=== PATIENT | female | born 1950 | race Caucasian/White ===

== ENCOUNTER 2018-08-17 08:53 | Emergency (ER) | payer MEDICAID ==
[~2018-08-17] VITALS: Ht 175.3 cm; Wt 85.2 kg
[~2018-08-17 08:53] MED LIST: NO HOME MEDS
[2018-08-17 11:05] LABS: BASOPHILS % (AUTO) 0.3 % (0-1); EOSINOPHILS # (AUTO) 0.2 X10'3 (0-0.9); EOSINOPHILS % (AUTO) 3.4 % (0-6); HEMOGLOBIN 12.3 g/dl (12.0-16.0); LYMPHOCYTES # (AUTO) 1.8 X10'3 (1.1-4.8); LYMPHOCYTES % (AUTO) 30.2 % (21-51); MEAN CORPUSCULAR HGB CONC 34.2 g/dL (33.0-36.5); MEAN CORPUSCULAR VOLUME 93.6 FL (78-98); MEAN PLATELET VOLUME 7.7 FL (7.4-10.4); MONOCYTES # (AUTO) 0.5 X10'3 (0-0.9); MONOCYTES % (AUTO) 7.6 % (2-12); NEUTROPHILS # (AUTO) 3.6 X10'3 (1.8-7.7); NEUTROPHILS % (AUTO) 58.5 % (42-75); PLATELET COUNT 216 X10'3 (140-440); RED BLOOD COUNT 3.85 X10'6 (4.20-5.60); WHITE BLOOD COUNT 6.1 X10'3 (4.5-11.0)
[2018-08-17 11:21] LABS: ALANINE AMINOTRANSFERASE 27 U/L (12-78); ALBUMIN 3.5 G/DL (3.4-5.0); ALBUMIN/GLOBULIN RATIO 1.1 (1.1-1.5); ALKALINE PHOSPHATASE 99 IU/L (46-116); ANION GAP 6 (8-16); ASPARTATE AMINO TRANSFERASE 22 U/L (10-37); BILIRUBIN,TOTAL 0.4 MG/DL (0.1-1.0); BLOOD UREA NITROGEN 21 MG/DL (7-18); BUN/CREATININE RATIO 19.4 (6.6-38.0); CALCIUM 9.1 MG/DL (8.5-10.1); CHLORIDE 110 MMOL/L (99-107); CREATININE 1.08 MG/DL (0.40-0.90); GLUCOSE 86 MG/DL (70-104); POTASSIUM 3.7 MMOL/L (3.5-5.1); SODIUM 143 MMOL/L (135-145); TOTAL CARBON DIOXIDE 27.4 MMOL/L (24-32); TOTAL PROTEIN 6.8 G/DL (6.4-8.2); eGFR 51 ML/MIN
[2018-08-17 12:06] VITALS: BP 140/78
[2018-08-17] MEDS ORDERED: HYDR-3965 PO (13:04)
== END 2018-08-17 13:16 | disposition home or self-care (01) ==
LOC: ER 08:53
DX: K92.2 Gastrointestinal hemorrhage, unspecified (principal); G89.29 Other chronic pain; M25.561 Pain in right knee; Z90.49 Acquired absence of other specified parts of digestive tract; Z98.51 Tubal ligation status; Z79.899 Other long term (current) drug therapy; Z60.2 Problems related to living alone
CPT/HCPCS: 36415; 73560; 80053; 85025; 99284

== ENCOUNTER 2021-09-13 18:44 | Emergency (ER) | payer MEDICARE, MEDICAID ==
[~2021-09-13] VITALS: Ht 175.3 cm; Wt 84.1 kg
[~2021-09-13 18:44] MED LIST changes: +APIX5TAB3 PO; -NO HOME MEDS
[2021-09-13 19:15] LABS: BASOPHILS % (AUTO) 0.5 % (0-1); EOSINOPHILS # (AUTO) 0.1 X10'3 (0-0.9); EOSINOPHILS % (AUTO) 1.1 % (0-6); HEMATOCRIT 37.5 % (35.0-45.0); HEMOGLOBIN 12.9 g/dl (12.0-16.0); LYMPHOCYTES # (AUTO) 2.2 X10'3 (1.1-4.8); LYMPHOCYTES % (AUTO) 36.3 % (21-51); MEAN CORPUSCULAR HEMOGLOBIN 31.1 PG (27.0-31.0); MEAN CORPUSCULAR HGB CONC 34.4 g/dL (33.0-36.5); MEAN CORPUSCULAR VOLUME 90.5 FL (78-98); MEAN PLATELET VOLUME 7.6 FL (7.4-10.4); MONOCYTES # (AUTO) 0.3 X10'3 (0-0.9); MONOCYTES % (AUTO) 4.2 % (2-12); NEUTROPHILS # (AUTO) 3.5 X10'3 (1.8-7.7); NEUTROPHILS % (AUTO) 57.9 % (42-75); PLATELET COUNT 249 X10'3 (140-440); RED BLOOD COUNT 4.14 X10'6 (4.20-5.60); RED CELL DISTRIBUTION WIDTH 13.5 % (11.5-14.5); WHITE BLOOD COUNT 6.1 X10'3 (4.5-11.0)
[2021-09-13 19:23] LABS: D-DIMER 0.52 MG/L FEU (0-0.50)
[2021-09-13 19:28] LABS: ALANINE AMINOTRANSFERASE 26 U/L (12-78); ALBUMIN 3.7 G/DL (3.4-5.0); ALKALINE PHOSPHATASE 91 IU/L (46-116); ANION GAP 12 (8-16); ASPARTATE AMINO TRANSFERASE 34 U/L (10-37); BILIRUBIN,TOTAL 0.4 MG/DL (0.1-1.0); BLOOD UREA NITROGEN 22 MG/DL (7-18); CALCIUM 8.9 MG/DL (8.5-10.1); CHLORIDE 105 MMOL/L (99-107); CREATININE 1.05 MG/DL (0.40-0.90); GLUCOSE 158 MG/DL (70-104); POTASSIUM 3.7 MMOL/L (3.5-5.1); SODIUM 140 MMOL/L (135-145); TOTAL CARBON DIOXIDE 22.9 MMOL/L (24-32); TOTAL PROTEIN 7.4 G/DL (6.4-8.2); eGFR 52 ML/MIN
[2021-09-13 19:37] LABS: MAGNESIUM 1.8 MG/DL (1.5-2.4)
[2021-09-13 21:55] VITALS: BP 139/80
== END 2021-09-13 21:57 | disposition home or self-care (01) ==
LOC: ER 18:44
DX: R06.02 Shortness of breath (principal); M54.9 Dorsalgia, unspecified; R20.0 Anesthesia of skin; F41.9 Anxiety disorder, unspecified; I48.91 Unspecified atrial fibrillation; Z90.49 Acquired absence of other specified parts of digestive tract; Z98.51 Tubal ligation status; Z90.89 Acquired absence of other organs; Z86.16 Personal history of COVID-19; Z79.01 Long term (current) use of anticoagulants
CPT/HCPCS: 36415; 71045; 80053; 83735; 83880; 84484; 85025; 85379; 93005; 99285

== ENCOUNTER 2024-03-18 08:00 | Inpatient (IN) | payer MEDICARE, MEDICAID ==
[~2024-03-18] VITALS: Ht 170.2 cm; Wt 89.1 kg
[2024-03-18 08:33] LABS: BASOPHILS % (AUTO) 0.7 % (0-1); EOSINOPHILS # (AUTO) 0.6 X10'3 (0-0.9); EOSINOPHILS % (AUTO) 9.9 % (0-6); HEMATOCRIT 34.9 % (35.0-45.0); HEMOGLOBIN 12.2 g/dl (12.0-16.0); LYMPHOCYTES # (AUTO) 1.7 X10'3 (1.1-4.8); LYMPHOCYTES % (AUTO) 27.5 % (21-51); MEAN CORPUSCULAR VOLUME 88.6 FL (78-98); MEAN PLATELET VOLUME 7.1 FL (7.4-10.4); MONOCYTES # (AUTO) 0.6 X10'3 (0-0.9); MONOCYTES % (AUTO) 9.4 % (2-12); NEUTROPHILS # (AUTO) 3.3 X10'3 (1.8-7.7); NEUTROPHILS % (AUTO) 52.5 % (42-75); PLATELET COUNT 245 X10'3 (140-440); RED BLOOD COUNT 3.93 X10'6 (4.20-5.60); RED CELL DISTRIBUTION WIDTH 12.8 % (11.5-14.5); WHITE BLOOD COUNT 6.3 X10'3 (4.5-11.0)
[2024-03-18 09:00] LABS: ALANINE AMINOTRANSFERASE 19 U/L (12-78); ALBUMIN/GLOBULIN RATIO 0.7 (1.1-1.5); ALKALINE PHOSPHATASE 98 IU/L (46-116); ANION GAP 10 (8-16); ASPARTATE AMINO TRANSFERASE 15 U/L (10-37); BILIRUBIN,TOTAL 0.5 MG/DL (0.1-1.0); BLOOD UREA NITROGEN 14 MG/DL (7-18); BUN/CREATININE RATIO 13.1 (10.0-20.0); CALCIUM 8.9 MG/DL (8.5-10.1); CHLORIDE 103 MMOL/L (99-107); CREATININE 1.07 MG/DL (0.40-0.90); GLUCOSE 116 MG/DL (70-104); POTASSIUM 3.4 MMOL/L (3.5-5.1); SODIUM 137 MMOL/L (135-145); TOTAL CARBON DIOXIDE 23.9 MMOL/L (24-32); TOTAL PROTEIN 7.6 G/DL (6.4-8.2); eCRCL 46 ML/MIN; eGFR 50 ML/MIN
[2024-03-18 09:08] LABS: PRO BRAIN NATRIURETIC PEPTIDE 211 PG/ML (0-125)
[2024-03-18] MEDS ORDERED: iohexol 350MG/ML 100ml bottle IV ONE (09:29)
[2024-03-18] MEDS: normal saline 1000ml 1,000 ML IV ONE (10:21)
[2024-03-18] MEDS: fentaNYL/PF 50MCG/1 ML 2ML syringe IV ONE (10:21)
[2024-03-18] MEDS: heparin 10,000 units/1 ML INJ IV ONE (10:25)
[2024-03-18 10:28] LABS: PROTHROMBIN TIME 10.8 SECONDS (9.0-12.0)
[2024-03-18] MEDS: heparin 25,000 UNIT/250ml bag 250 ML IV PRN (10:28)
[2024-03-18] MEDS ORDERED: ondansetron/PF 4mg/2ml inj IV PRN (10:35)
[2024-03-18] MEDS ORDERED: mag hydrox/Alum hydrox/simeth 30ml oral suspension PO PRN (10:35)
[2024-03-18] MEDS ORDERED: magnesium hydroxide 30ml (MOM) UD suspension PO PRN (10:35)
[2024-03-18] MEDS ORDERED: acetaminophen 325mg tablet PO PRN (10:35)
[2024-03-18] MEDS ORDERED: morphine 2 MG/ML inj. syringe IV PRN (10:35)
[2024-03-18] MEDS: MESSAGE TO NURSING IV ONE ×3 (10:38→23:50)
[2024-03-18] MEDS: diltiazem CD 120mg capsule (once-daily) PO SCH (12:24)
[2024-03-18] MEDS: HYDROcodone/acetaminophen 5mg/325mg tablet PO PRN (13:10)
[2024-03-18] MEDS: morphine 2 MG/ML inj. syringe IV PRN (15:07)
[2024-03-18] MEDS: diphenhydrAMINE 25mg capsule PO ONE ×2 (18:34→23:20)
[2024-03-18 18:45] VITALS: BP 104/63; PULSE 106; RESP 22; TEMP 97.9; O2SAT 96
[2024-03-18 19:00] VITALS: RESP 22; O2SAT 95
[2024-03-18] MEDS: docusate sod 100mg capsule PO SCH (19:35)
[2024-03-18] MEDS: acetaminophen 325mg tablet PO PRN (20:34)
[2024-03-18 22:00] VITALS: BP 118/87; PULSE 114; RESP 22; TEMP 96.8; O2SAT 96
[2024-03-18] MEDS: metoprolol tartrate 1mg/ml inj IV ONE (22:54)
[2024-03-19] VITALS (8 sets, daily range): BP systolic 102–128; BP diastolic 63–88; PULSE 62–100; RESP 14–24; TEMP 97–98.3; O2SAT 95–98
[2024-03-19 05:59] LABS: BASOPHILS # (AUTO) 0.1 X10'3 (0-0.2); BASOPHILS % (AUTO) 1.2 % (0-1); EOSINOPHILS # (AUTO) 0.7 X10'3 (0-0.9); EOSINOPHILS % (AUTO) 9.9 % (0-6); HEMATOCRIT 30.2 % (35.0-45.0); HEMOGLOBIN 10.3 g/dl (12.0-16.0); LYMPHOCYTES # (AUTO) 2.7 X10'3 (1.1-4.8); LYMPHOCYTES % (AUTO) 37.2 % (21-51); MEAN CORPUSCULAR HEMOGLOBIN 30.8 PG (27.0-31.0); MEAN CORPUSCULAR HGB CONC 34.1 g/dL (33.0-36.5); MEAN CORPUSCULAR VOLUME 90.3 FL (78-98); MEAN PLATELET VOLUME 7.4 FL (7.4-10.4); MONOCYTES # (AUTO) 0.6 X10'3 (0-0.9); MONOCYTES % (AUTO) 8.6 % (2-12); NEUTROPHILS # (AUTO) 3.1 X10'3 (1.8-7.7); NEUTROPHILS % (AUTO) 43.1 % (42-75); PLATELET COUNT 310 X10'3 (140-440); RED BLOOD COUNT 3.34 X10'6 (4.20-5.60); RED CELL DISTRIBUTION WIDTH 12.9 % (11.5-14.5); WHITE BLOOD COUNT 7.2 X10'3 (4.5-11.0)
[2024-03-19 06:04] LABS: ALBUMIN 2.6 G/DL (3.4-5.0); ANION GAP 4 (8-16); BLOOD UREA NITROGEN 15 MG/DL (7-18); BUN/CREATININE RATIO 14.2 (10.0-20.0); CALCIUM 8.5 MG/DL (8.5-10.1); CHLORIDE 108 MMOL/L (99-107); CREATININE 1.06 MG/DL (0.40-0.90); GLUCOSE 98 MG/DL (70-104); POTASSIUM 4.1 MMOL/L (3.5-5.1); SODIUM 142 MMOL/L (135-145); TOTAL CARBON DIOXIDE 30.3 MMOL/L (24-32); eCRCL 46 ML/MIN; eGFR 51 ML/MIN
[2024-03-19] MEDS: MESSAGE TO NURSING IV ONE ×3 (06:49→18:52)
[2024-03-19] MEDS: diphenhydrAMINE 25mg capsule PO PRN (09:25)
[2024-03-19] MEDS: heparin 10,000 units/1 ML INJ IV PRN (18:39)
[2024-03-20] VITALS (8 sets, daily range): BP systolic 123–153; BP diastolic 68–76; PULSE 60–64; RESP 12–20; TEMP 96.9–98.5; O2SAT 93–99
[2024-03-20] MEDS: MESSAGE TO NURSING IV ONE ×3 (01:55→18:40)
[2024-03-20 11:52] LABS: BASOPHILS % (AUTO) 0.3 % (0-1); EOSINOPHILS # (AUTO) 0.5 X10'3 (0-0.9); EOSINOPHILS % (AUTO) 8.3 % (0-6); HEMATOCRIT 33.4 % (35.0-45.0); HEMOGLOBIN 11.6 g/dl (12.0-16.0); LYMPHOCYTES # (AUTO) 1.5 X10'3 (1.1-4.8); LYMPHOCYTES % (AUTO) 24.9 % (21-51); MEAN CORPUSCULAR HEMOGLOBIN 31.1 PG (27.0-31.0); MEAN CORPUSCULAR HGB CONC 34.6 g/dL (33.0-36.5); MEAN PLATELET VOLUME 7.1 FL (7.4-10.4); MONOCYTES # (AUTO) 0.4 X10'3 (0-0.9); NEUTROPHILS # (AUTO) 3.7 X10'3 (1.8-7.7); NEUTROPHILS % (AUTO) 59.5 % (42-75); PLATELET COUNT 284 X10'3 (140-440); RED BLOOD COUNT 3.71 X10'6 (4.20-5.60); RED CELL DISTRIBUTION WIDTH 12.9 % (11.5-14.5); WHITE BLOOD COUNT 6.2 X10'3 (4.5-11.0)
[2024-03-20 12:09] LABS: ALBUMIN 2.6 G/DL (3.4-5.0); ANION GAP 6 (8-16); BLOOD UREA NITROGEN 19 MG/DL (7-18); BUN/CREATININE RATIO 16.5 (10.0-20.0); CALCIUM 8.5 MG/DL (8.5-10.1); CHLORIDE 107 MMOL/L (99-107); CREATININE 1.15 MG/DL (0.40-0.90); GLUCOSE 116 MG/DL (70-104); POTASSIUM 3.3 MMOL/L (3.5-5.1); SODIUM 143 MMOL/L (135-145); TOTAL CARBON DIOXIDE 29.6 MMOL/L (24-32); eCRCL 42 ML/MIN; eGFR 46 ML/MIN
[2024-03-20] MEDS: potassium Cl 20 mEq SR tablet PO STA (13:01)
[2024-03-21 02:00] VITALS: BP 135/76; PULSE 62; RESP 14; TEMP 98.3; O2SAT 92
[2024-03-21] MEDS: MESSAGE TO NURSING IV ONE ×2 (02:00→08:04)
[2024-03-21 06:00] VITALS: BP 144/66; PULSE 61; RESP 18; TEMP 97; O2SAT 96
[2024-03-21 07:44] LABS: BASOPHILS % (AUTO) 0.6 % (0-1); EOSINOPHILS # (AUTO) 0.6 X10'3 (0-0.9); EOSINOPHILS % (AUTO) 9.7 % (0-6); HEMATOCRIT 33.9 % (35.0-45.0); HEMOGLOBIN 11.7 g/dl (12.0-16.0); LYMPHOCYTES # (AUTO) 1.9 X10'3 (1.1-4.8); LYMPHOCYTES % (AUTO) 30.3 % (21-51); MEAN CORPUSCULAR HEMOGLOBIN 30.6 PG (27.0-31.0); MEAN CORPUSCULAR HGB CONC 34.6 g/dL (33.0-36.5); MEAN CORPUSCULAR VOLUME 88.6 FL (78-98); MEAN PLATELET VOLUME 7.5 FL (7.4-10.4); MONOCYTES # (AUTO) 0.4 X10'3 (0-0.9); MONOCYTES % (AUTO) 7.2 % (2-12); NEUTROPHILS # (AUTO) 3.3 X10'3 (1.8-7.7); NEUTROPHILS % (AUTO) 52.2 % (42-75); PLATELET COUNT 325 X10'3 (140-440); RED BLOOD COUNT 3.83 X10'6 (4.20-5.60); RED CELL DISTRIBUTION WIDTH 12.8 % (11.5-14.5); WHITE BLOOD COUNT 6.3 X10'3 (4.5-11.0)
[2024-03-21 08:07] LABS: ALBUMIN 2.7 G/DL (3.4-5.0); ANION GAP 6 (8-16); BLOOD UREA NITROGEN 15 MG/DL (7-18); BUN/CREATININE RATIO 12.9 (10.0-20.0); CHLORIDE 105 MMOL/L (99-107); CREATININE 1.16 MG/DL (0.40-0.90); GLUCOSE 93 MG/DL (70-104); POTASSIUM 3.8 MMOL/L (3.5-5.1); SODIUM 138 MMOL/L (135-145); TOTAL CARBON DIOXIDE 27.1 MMOL/L (24-32); eCRCL 42 ML/MIN; eGFR 46 ML/MIN
[2024-03-21] MEDS ORDERED: APIX5TAB5 PO (10:20)
[2024-03-21] MEDS ORDERED: CARCD120C PO (10:20)
[2024-03-21] MEDS ORDERED: BENZ-111 PO (10:25)
[2024-03-21] MEDS ORDERED: HYDR-3964 PO (10:25)
[2024-03-21] MEDS: apixaban 5mg tablet PO ONE (10:35)
[2024-03-21 11:00] VITALS: BP 131/70; PULSE 66; RESP 12; TEMP 97.6; O2SAT 98
== END 2024-03-21 12:45 | disposition home or self-care (01) | DRG 299 ==
LOC: ER 08:01 → ED HOLD 10:39 → PCU 3S 18:30
PROVIDERS: ADMIT Internal Medicine; ATTEND Internal Medicine
PROC: B32T1ZZ Computerized Tomography (CT Scan) of Left Pulmonary Artery using Low Osmolar Contrast (ICD-10-PCS; principal; 2024-03-18)
PROC: B3201ZZ Computerized Tomography (CT Scan) of Thoracic Aorta using Low Osmolar Contrast (ICD-10-PCS; 2024-03-18)
PROC: B32S1ZZ Computerized Tomography (CT Scan) of Right Pulmonary Artery using Low Osmolar Contrast (ICD-10-PCS; 2024-03-18)
DX: I82.412 Acute embolism and thrombosis of left femoral vein (principal); I26.99 Other pulmonary embolism without acute cor pulmonale; J96.01 Acute respiratory failure with hypoxia; Z20.822 Contact with and (suspected) exposure to COVID-19; E89.0 Postprocedural hypothyroidism; D64.9 Anemia, unspecified; F17.210 Nicotine dependence, cigarettes, uncomplicated; I48.0 Paroxysmal atrial fibrillation; E87.6 Hypokalemia; Z79.899 Other long term (current) drug therapy; Z79.01 Long term (current) use of anticoagulants; Z90.49 Acquired absence of other specified parts of digestive tract
CPT/HCPCS: 36415; 71045; 71275; 80048; 80053; 83880; 84484; 85025; 85610; 85730; 87081; 87502; 87503; 87811; 93005; 93306; 93970; 99291; A4615; G0378; J1644; J2270; J3010; J3490; J7030; Q0163; Q9967